=== PATIENT | male | born 2000 | race Caucasian/White ===

== ENCOUNTER 2023-12-07 16:26 | Emergency (ER) | payer SELFPAY ==
[~2023-12-07] VITALS: Ht 172.7 cm; Wt 70.0 kg
[2023-12-07 16:37] VITALS: BP 121/65; PULSE 109; RESP 16; O2SAT 100
[2023-12-07] MEDS: ACETAMINOPHEN 325MG TABLET PO ONE (18:00)
[2023-12-07] MEDS: TETANUS, DIPHTHERIA, PERTUSSIS VAC/PF 0.5ML (>10YR OLD) IM ONE (18:00)
== END 2023-12-07 19:53 | disposition left against medical advice (07) ==
LOC: ER 16:26
DX: S60.512A Abrasion of left hand, initial encounter (principal); S60.511A Abrasion of right hand, initial encounter; S00.81XA Abrasion of other part of head, initial encounter; V98.8XXA Other specified transport accidents, initial encounter; Y93.89 Activity, other specified; Y92.89 Other specified places as the place of occurrence of the external cause; Y99.8 Other external cause status
CPT/HCPCS: 99283